=== PATIENT | male | born 1950 | race Caucasian/White ===

== ENCOUNTER 2017-08-22 21:09 | Inpatient (IN) | payer OTHER ==
[~2017-08-22] VITALS: Ht 180.3 cm; Wt 105.7 kg
[~2017-08-22 21:09] MED LIST: AMBIEN CR12.5 MG PO; GLUCOPHAGE500 MG PO; INDAPAMIDE1.25 MG PO; IRON325 M1 PO; LIPITOR40 MG PO; LOTREL 5/201 CAPSULE PO; TRICOR145 MG PO; TYLENOL EXTRA500 MG PO
[2017-08-23 07:54] VITALS: BP 122/67
[2017-08-23 14:01] VITALS: BP 123/67
[2017-08-23 15:47] VITALS: BP 118/61
[2017-08-23 20:04] VITALS: BP 127/63
[2017-08-24 00:05] VITALS: BP 115/59
[2017-08-24 04:25] VITALS: BP 137/65
[2017-08-24 06:07] LABS: HEMATOCRIT 37.1 % (38.0-50.0)
[2017-08-24 06:08] LABS: HEMOGLOBIN 12.2 G/DL (12.5-16.6)
[2017-08-24 06:34] LABS: CHLORIDE 101 MEQ/L (99-109); CREATININE 0.9 MG/DL (0.6-1.3); GFR ESTIMATE (CALCULATED) > 59 mL/min/ (58.99-99999); GLUCOSE 202 mg/dL (70-99); POTASSIUM 4.2 MEQ/L (3.7-5.4); SODIUM 136 MEQ/L (136-147); UREA NITROGEN (BUN) 21 mg/dL (9-23)
[2017-08-24 08:09] VITALS: BP 126/60
[2017-08-24 11:39] VITALS: BP 126/57
[2017-08-24 15:41] VITALS: BP 135/66
[2017-08-24 19:36] VITALS: BP 126/62
[2017-08-25 00:09] VITALS: BP 141/72
[2017-08-25 04:03] VITALS: BP 125/67
[2017-08-25 06:15] LABS: HEMATOCRIT 35.5 % (38.0-50.0); HEMOGLOBIN 11.9 G/DL (12.5-16.6); MCV 88.5 FL (86-99)
[2017-08-25] MEDS ORDERED: ELIQUIS2.5 MG PO (07:51)
[2017-08-25] MEDS ORDERED: CELECOXIB200 MG PO (07:51)
[2017-08-25] MEDS ORDERED: OXYCODONE HCL5 MG PO (07:51)
[2017-08-25] MEDS ORDERED: OXYCONTIN10 MG PO (07:51)
[2017-08-25 08:23] VITALS: BP 138/66
[2017-08-25 12:15] VITALS: BP 129/58
== END 2017-08-25 15:10 | DRG 470 ==
LOC: ENRESERV 21:09 → 2SOUTH 08-23 06:39 → 3WEST 08-23 12:58 → 2SOUTH 08-23 13:14 → 3WEST 08-25 15:10
PROVIDERS: Orthopaedic Surgery
PROC: 0SRD0J9 Replacement of Left Knee Joint with Synthetic Substitute, Cemented, Open Approach (ICD-10-PCS; principal; 2017-08-23)
DX: M17.12 Unilateral primary osteoarthritis, left knee (principal); I10 Essential (primary) hypertension; E78.5 Hyperlipidemia, unspecified; R73.03 Prediabetes; Z85.828 Personal history of other malignant neoplasm of skin
CPT/HCPCS: 80048; 82948; 85014; 85018; 93971; C1713; J0131; J0690; J1815; J1885; J2175; J2250; J2795; J3010; J7050